=== PATIENT | female | born 1990 | race Caucasian/White ===

== ENCOUNTER 2023-12-15 00:11 | Outpatient (CLI) | payer OTHER ==
[2023-12-15 03:13] VITALS: BP 130/72; PULSE 70; RESP 16; TEMP 96.2
--- NOTE | 2024-01-22 02:06 | P.MSEPDOC ---
Presenting Problems - Arrival Data Date of Arrival on Unit: 12/15/23 Time of Arrival on Unit: 00:11 Mode of Transport: Ambulatory - Complaint OB-Reason for Admission/Chief Complaint: Other Comment: Patient fell on abdomen Medical History - Information : 2 Para: 1 Term: 1 : 0 Abortions: Spontaneous or Elective: 0 Number of Living Children: 1 - Gestational Age Gestational Age by MILY (wks/days): 29 Weeks and 0 Days - History Complications: Multiple Review of Systems - Review of Systems Constitutional: No problems Breast: No problems ENT: No problems Cardiovascular: No problems Respiratory: No problems Gastrointestinal: No problems Genitourinary: No problems Musculoskeletal: No problems Neurological: No problems Skin: No problems Vital Signs - Temperature Temperature: 96.2 F Temperature Source: Temporal Artery Scan - Pulse Pulse Oximetery Pulse Rate: 70 Pulse Assessment Method: Pulse Oximetry - Respirations Respiratory Rate: 16 Oxygen Delivery Method: Room Air O2 Sat by Pulse Oximetry: 98 - Blood Pressure Right Arm Blood Pressure: 130/72 Blood Pressure Mean: 91 Blood Pressure Source: Automatic Cuff Medical Screen Scoring - Assessment - Baby A Baseline FHR: 140 Heart Rate - NICHD Category: Category I (Normal) NST: Reactive - Assessment - Baby B Baseline FHR: 135 Heart Rate - NICHD Category: Category I (Normal) NST: Reactive Maternal Triage Index - Maternal Triage Index Presenting for scheduled procedure w/no complaint: No - Stat/Priority 1 Stat Priority 1: No - Urgent/Priority 2 Urgent Priority 2: Yes Provider Notified: Keaton Riggs Provider Notified Time: 02:14 Criteria Met for Priority 2: Patient came in after fall onto her abdomen Disposition - Disposition OB Disposition: Discharge to home Discharge Date: 12/15/23 Discharge Time: 02:15 I agree with the RN Medical Screening Exam: Yes Physician's MSE Comment: I have neither seen nor examined the patient. Case reviewed; plan agreed upon as documented in EMR&OBIX.: Yes Diagnosis: RELATED CONDITIONS, UNSPECIFIED, THIRD TRIMESTER
== END 2023-12-15 02:15 | disposition home or self-care (01) ==
LOC: FBPOP 00:11
PROVIDERS: ATTEND Obstetrics & Gynecology
CPT/HCPCS: 59025; 99203

== ENCOUNTER 2024-02-09 09:11 | Inpatient (IN) | payer OTHER ==
[2024-02-09] MEDS ORDERED: miSOPROStoL 200 MCG TAB PO PRN (09:19)
[2024-02-09] MEDS ORDERED: OXYTOCIN 10 UNIT/ML 1 ML VIAL IM PRN (09:19)
[2024-02-09] MEDS ORDERED: TRANEXAMIC 1,000 MG/100ML-NACL 1,000 MG in EMPTY BAG 1 BAG IV PRN (09:19)
[2024-02-09] MEDS ORDERED: CARBOPROST TROMETHAMINE 250 MCG/ML 1 ML AMP IM PRN (09:19)
[2024-02-09] MEDS ORDERED: METHYLERGONOVINE 0.2 MG/ML 1 ML AMP IM PRN (09:19)
[2024-02-09] MEDS ORDERED: OXYTOCIN 30 UNITS/500 ML NS 30 UNIT in SALINE 1 500ML.BAG IV SCH ×2 (09:19→11:15)
[2024-02-09] MEDS: LACTATED RINGERS 1,000 ML IV SCH (09:39)
[2024-02-09 09:49] LABS: Basophils # (A) 0.1 k/uL (0-0.2); Basophils % (A) 1 %; Eosinophils # (A) 0.1 k/uL (0-0.7); Eosinophils % (A) 1 %; HCT 33.5 % (34.0-46.0); HGB 10.9 gm/dL (11.4-16.0); Hypochromasia Slight; Lymphocytes # (A) 2.4 k/uL (1.0-4.8); Lymphocytes % (A) 24 %; MCH 27.6 pg (25.0-35.0); MCHC 32.5 g/dL (31.0-37.0); MCV 84.8 fL (80.0-100.0); Mean Platelet Volume 14.3; Monocytes # (A) 0.6 k/uL (0-1.0); Monocytes % (A) 6 %; Neutrophils # (A) 6.7 k/uL (1.3-7.7); Neutrophils % (A) 67 %; RBC 3.95 m/uL (3.80-5.40); RDW 14.7 % (11.5-15.5)
[2024-02-09] MEDS: CITRIC ACID-SODIUM CITRATE 15 ML CUP PO ONE (09:53)
[2024-02-09 10:50] LABS: Large Platelets Present; Platelet Count 172 k/uL (150-450)
[2024-02-09] MEDS ORDERED: NALOXONE 0.4 MG/ML 1 ML VIAL IV PRN (11:06)
[2024-02-09] MEDS ORDERED: diphenhydrAMINE 25 MG CAP PO PRN (11:06)
[2024-02-09] MEDS ORDERED: LANOLIN CREAM 1 GM TUBE TOPICAL PRN (11:06)
[2024-02-09] MEDS ORDERED: diphenhydrAMINE 50 MG/ML 1 ML VIAL IVP PRN ×2 (11:06)
[2024-02-09] MEDS ORDERED: SIMETHICONE 80 MG CHEWABLE PO PRN (11:06)
[2024-02-09] MEDS ORDERED: ZOLPIDEM 5 MG TAB PO PRN (11:06)
[2024-02-09] MEDS ORDERED: ONDANSETRON 4 MG/2 ML VIAL IVP PRN (11:06)
[2024-02-09] MEDS ORDERED: diphenhydrAMINE 50 MG CAP PO PRN (11:06)
[2024-02-09] MEDS ORDERED: ONDANSETRON 4 MG/2 ML VIAL ONE (12:24)
[2024-02-09] MEDS ORDERED: PHENYLEPHRINE-0.9% NACL SYG 1,000 MCG/10 ML SYRINGE ONE (12:24)
[2024-02-09] MEDS ORDERED: KETOROLAC 15 MG/ML 1 ML VIAL ONE (12:24)
[2024-02-09] MEDS ORDERED: MORPHINE SULFATE (PF) 0.3 MG/0.3 ML SYR ONE (12:24)
[2024-02-09] MEDS ORDERED: OXYTOCIN 30 UNITS/500 ML NS BAG IV ONE (12:24)
[2024-02-09] MEDS ORDERED: NALBUPHINE (ANES) 10 MG/ML - 1 ML AMP ONE (12:24)
[2024-02-09] MEDS: METOCLOPRAMIDE 5 MG/ML 2 ML VIAL IVP PRN (14:59)
[2024-02-09] MEDS: KETOROLAC 15 MG/ML 1 ML VIAL IVP SCH (18:03)
[2024-02-09] MEDS: ACETAMINOPHEN TAB 500 MG TAB PO SCH (20:19)
[2024-02-09] MEDS: SENNOSIDES-DOCUSATE SODIUM 1 EACH TAB PO SCH (20:21)
[2024-02-10] MEDS ORDERED: ACETAMINOPHEN TAB 500 MG TAB ONE (06:22)
--- NOTE | 2024-02-10 07:10 | P.PN ---
Progress Note - Text 02/10/24 636am 33-year-old female status post with spinal Duramorph. Patient seen and evaluated for postop pain control, she has a VAS of 3 with complaints of pruritus which should subside. She does not have any problems with nausea vomiting at this time.
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
--- NOTE | 2024-02-10 07:41 | P.OP ---
Date of Procedure: 02/10/24 Preoperative Diagnosis: 1. Di/Di twins at 37 wees Postoperative Diagnosis: same Procedure(s) Performed: primary low transverse Anesthesia: spinal Surgeon: Ana Garza Electric[employer] Office #1: Renee Gustafson Estimated Blood Loss (ml): 800 IV fluids (ml): 1,000 Urine output (ml): 300 Pathology: other (placenta) Condition: stable Disposition: floor Operative Findings: viable male infants A: Apgar8,9 wedight 5#6oz B: 9,9, weight 6#6oz. normal uterus, tubes and ovaries
--- NOTE | 2024-02-10 07:42 | P.PNOBGPC ---
Subjective - Subjective Principal diagnosis: Status post primary low transverse postop day 1 Interval history: Patient seen and examined. Denies nausea, vomiting, chest pain, shortness of breath or calf pain. Patient reports: Reports appetite normal, Reports voiding normally, Reports pain well controlled, Reports ambulating normally Colbert: doing well Objective - Vital Signs Latest vital signs: Vital Signs Temp Pulse Resp BP Pulse Ox 02/09/24 23:30 97.5 F L 50 L 17 141/86 100 02/09/24 19:40 97.8 F 51 L 16 132/82 97 02/09/24 17:30 97.9 F 56 L 17 125/43 98 02/09/24 13:07 55 L 17 136/78 99 02/09/24 12:52 49 L 16 128/86 99 02/09/24 12:37 53 L 17 121/73 99 02/09/24 12:22 51 L 18 118/71 99 02/09/24 12:07 55 L 120/73 99 02/09/24 11:52 54 L 17 129/83 98 02/09/24 11:37 56 L 17 119/76 97 02/09/24 11:22 67 17 124/82 97 02/09/24 11:07 97.0 F L 71 17 119/66 99 02/09/24 09:19 98.0 F 71 17 151/92 99 Intake and Output 02/09/24 02/10/24 02/10/24 22:59 06:59 14:59 Intake Total 600 Output Total 300 1600 Balance 300 -1600 Intake: Oral 600 Output: Urine 300 1600 Uretheral (Person) 300 Other: Voiding Method Indwelling Catheter # Voids 1 - Exam Lungs: bilateral: normal Chest: Normal S1, Normal S2 Extremities: Present: normal Abdomen: Present: normal appearance, soft. Absent: distention, tenderness Incision: Present: normal, dry, intact Uterus: Present: normal, firm - Labs Labs: Abnormal Lab Results - Last 24 Hours (Table) 02/09/24 Range/Units 09:35 Hgb 10.9 L (11.4-16.0) gm/dL Hct 33.5 L (34.0-46.0) % Assessment and Plan (1) Dichorionic diamniotic twin gestation Current Visit: Yes Status: Resolved Code(s): O30.049 - TWIN , DICHORIONIC/DIAMNIOTIC, UNSP TRIMESTER SNOMED Code(s): 563896378 (2) 37 weeks gestation of Current Visit: Yes Status: Resolved Code(s): Z3A.37 - 37 WEEKS GESTATION OF SNOMED Code(s): 94415413 (3) Status post primary low transverse section Current Visit: Yes Status: Acute Code(s): Z98.891 - HISTORY OF UTERINE SCAR FROM PREVIOUS SURGERY SNOMED Code(s): 329140210 Plan: 1. Increase ambulation 2. Regular diet 3. Continue postoperative care
[2024-02-10 08:21] LABS: Basophils # (A) 0.1 k/uL (0-0.2); Basophils % (A) 1 %; Eosinophils # (A) 0.1 k/uL (0-0.7); Eosinophils % (A) 1 %; HCT 31.6 % (34.0-46.0); HGB 10.2 gm/dL (11.4-16.0); Lymphocytes % (A) 19 %; MCH 27.2 pg (25.0-35.0); MCHC 32.3 g/dL (31.0-37.0); MCV 84.2 fL (80.0-100.0); Mean Platelet Volume 15.7; Monocytes # (A) 0.7 k/uL (0-1.0); Monocytes % (A) 7 %; Neutrophils # (A) 7.8 k/uL (1.3-7.7); Neutrophils % (A) 72 %; Poikilocytosis Slight; RBC 3.75 m/uL (3.80-5.40); WBC 10.9 k/uL (3.8-10.6)
[2024-02-10 08:22] LABS: Platelet Count 162 k/uL (150-450)
[2024-02-10] MEDS: IBUPROFEN 800 MG TAB PO SCH (09:08)
--- NOTE | 2024-02-11 11:58 | P.PNOBGPC ---
Subjective - Subjective Patient reports: Reports appetite normal, Reports voiding normally, Reports pain well controlled, Reports ambulating normally : doing well, in NICU Objective - Vital Signs Latest vital signs: Vital Signs Temp Pulse Resp BP Pulse Ox 02/11/24 07:45 99.6 F 75 16 122/83 97 02/11/24 00:00 98.2 F 79 18 135/86 97 02/10/24 16:00 97.6 F 89 14 122/69 Intake and Output 02/10/24 02/11/24 02/11/24 22:59 06:59 14:59 Other: # Voids 2 2 - Exam Extremities: Present: normal Abdomen: Present: normal appearance, soft. Absent: distention, tenderness Incision: Present: normal, dry, intact Uterus: Present: normal, firm (The uterine fundus is tonic and appropriately tender below the umbilicus.) Assessment and Plan (1) Status post primary low transverse section Current Visit: Yes Status: Acute Code(s): Z98.891 - HISTORY OF UTERINE SCAR FROM PREVIOUS SURGERY SNOMED Code(s): 955761839 Plan: Continue routine and postoperative care. As the infant's remain in the nursery, the patient is likely to remain in the hospital until the discharge of her babies or day #4, whichever comes first. I have encouraged her to ambulate in the hallways routinely.
[2024-02-11] MEDS: CALCIUM CARBONATE 500 MG CHEWABLE PO PRN (13:00)
--- NOTE | 2024-02-12 06:13 | P.PNOBGPC ---
Subjective - Subjective Patient reports: Reports appetite normal, Reports voiding normally, Reports pain well controlled, Reports ambulating normally : doing well, in NICU Objective - Vital Signs Latest vital signs: Vital Signs Temp Pulse Resp BP Pulse Ox 02/11/24 23:30 99.5 F 85 16 119/62 98 02/11/24 16:30 97.8 F 69 16 137/79 97 02/11/24 07:45 99.6 F 75 16 122/83 97 Intake and Output 02/11/24 02/11/24 02/12/24 14:59 22:59 06:59 Other: # Voids 2 2 2 - Exam Extremities: Present: normal Abdomen: Present: normal appearance, soft. Absent: distention, tenderness Incision: Present: normal, dry, intact Uterus: Present: normal, firm Assessment and Plan (1) Status post primary low transverse section Current Visit: Yes Status: Acute Code(s): Z98.891 - HISTORY OF UTERINE SCAR FROM PREVIOUS SURGERY SNOMED Code(s): 427311528 Plan: As the baby's remain in the special care nursery for ongoing treatment, the patient will remain in the hospital. I have encouraged her to continue to ambulate in the hallways routinely. Continue routine and postope rative care with discharge likely tomorrow on postoperative day #4.
[2024-02-13 08:02] VITALS: BP 133/87; PULSE 82; RESP 18; TEMP 99.1
--- NOTE | 2024-02-13 09:10 | P.DS ---
Providers Date of admission: 02/09/24 09:11 Expected date of discharge: 02/13/24 Attending physician: Ana Garza Primary care physician: Stated None - Discharge Diagnosis(es) (1) Dichorionic diamniotic twin gestation Current Visit: Yes Status: Resolved (2) 37 weeks gestation of Current Visit: Yes Status: Resolved (3) Status post primary low transverse section Current Visit: Yes Status: Acute Hospital Course: Patient presented for primary low transverse due to twins. She underwent this procedure without complication. Postoperative course is benign uneventful. She denies nausea, vomiting, chest pain, shortness of breath or calf pain. Patient will be discharged home postoperative day #4 in stable condition to follow-up with me in one week. Plan - Discharge Summary Discharge Rx Participant: No New Discharge Prescriptions: No Action Vit No.179/Iron/Folic [ Tablet] 1 tab PO DAILY Discharge Medication List Vit No.179/Iron/Folic [ Tablet] 1 tab PO DAILY 12/15/23 [History] Follow up Appointment(s)/Referral(s): Ana Garza DO [Doctor of Osteopathic Medicine] - 02/22/24 2:15 pm (Post Appointment 03-23-2024 at 10:30am) Discharge Disposition: HOME SELF-CARE
== END 2024-02-13 16:00 | disposition home or self-care (01) | DRG 540 ==
LOC: 4FBP 09:11
PROVIDERS: ADMIT Obstetrics & Gynecology; ATTEND Obstetrics & Gynecology
PROC: 10D00Z1 Extraction of Products of Conception, Low, Open Approach (ICD-10-PCS; principal; 2024-02-10)
DX: O30.043 Twin pregnancy, dichorionic/diamniotic, third trimester (principal); Z3A.37 37 weeks gestation of pregnancy; Z37.2 Twins, both liveborn
CPT/HCPCS: 85025; 86850; 86900; 86901